=== PATIENT | female | born 1965 | race Caucasian/White ===

== ENCOUNTER 2017-09-10 20:53 | Emergency (ER) | payer MEDICAID ==
[~2017-09-10] VITALS: Ht 167.6 cm; Wt 161.0 kg
[~2017-09-10 20:53] MED LIST: AZIT250T PO; HYDR25TA4 PO
[2017-09-10] MEDS ORDERED: diphenhydrAMINE 50 mg/ml inj IV ONE (22:15)
[2017-09-10] MEDS ORDERED: ketorolac trometh. 30mg/ml inj. IV ONE (22:15)
[2017-09-10] MEDS ORDERED: metoclopramide 5 mg/ml inj IV ONE (22:15)
[2017-09-10 23:21] VITALS: BP 142/88
== END 2017-09-10 23:41 | disposition home or self-care (01) ==
LOC: ER 20:53
DX: G43.909 Migraine, unspecified, not intractable, without status migrainosus (principal); I10 Essential (primary) hypertension; Z90.89 Acquired absence of other organs; Z79.899 Other long term (current) drug therapy
CPT/HCPCS: 96374; 96375; 99284; J1200; J1885; J2765

== ENCOUNTER 2021-08-28 14:41 | Emergency (ER) | payer BC, MEDICAID, OTHER ==
[~2021-08-28] VITALS: Ht 165.1 cm; Wt 180.4 kg
[2021-08-28 15:54] LABS: BASOPHILS % (AUTO) 1.1 % (0-1); EOSINOPHILS % (AUTO) 2.7 % (0-6); HEMATOCRIT 45.5 % (35.0-45.0); HEMOGLOBIN 15.1 g/dl (12.0-16.0); LYMPHOCYTES # (AUTO) 1.6 X10'3 (1.1-4.8); LYMPHOCYTES % (AUTO) 10.8 % (21-51); MEAN CORPUSCULAR HEMOGLOBIN 27.4 PG (27.0-31.0); MEAN CORPUSCULAR HGB CONC 33.3 g/dL (33.0-36.5); MEAN CORPUSCULAR VOLUME 82.3 FL (78-98); MEAN PLATELET VOLUME 7.9 FL (7.4-10.4); MONOCYTES % (AUTO) 7.7 % (2-12); NEUTROPHILS # (AUTO) 11.3 X10'3 (1.8-7.7); NEUTROPHILS % (AUTO) 77.7 % (42-75); PLATELET COUNT 267 X10'3 (140-440); RED BLOOD COUNT 5.53 X10'6 (4.20-5.60); RED CELL DISTRIBUTION WIDTH 14.5 % (11.5-14.5); WHITE BLOOD COUNT 14.6 X10'3 (4.5-11.0)
[2021-08-28 15:55] LABS: BASOPHILS # (AUTO) 0.2 X10'3 (0-0.2); EOSINOPHILS # (AUTO) 0.4 X10'3 (0-0.9); MONOCYTES # (AUTO) 1.1 X10'3 (0-0.9)
[2021-08-28 15:56] LABS: URINE HCG NEGATIVE (NEG)
[2021-08-28 15:57] LABS: CLARITY,URINE SLIGHTLY CLOUDY (Clear); COLOR,URINE YELLOW (Yellow); GLUCOSE, URINE NEGATIVE (Neg); KETONES,URINE TRACE mg/dl (Neg); LEUKOCYTE ESTERASE ,URINE NEGATIVE (Neg); NITRITES, URINE NEGATIVE (Neg); OCCULT BLOOD,URINE MODERATE (Neg); PROTEIN,URINE 30 mg/dl (Neg)
[2021-08-28 15:58] LABS: UA COLLECTION TYPE CLN CATCH MIDSTREAM
[2021-08-28 16:04] LABS: BACTERIA,URINE 1+ /HPF (Neg); MUCUS STRANDS FEW /LPF (Neg); SQUAMOUS EPITHELIAL CELL,UR MANY /LPF (FEW)
[2021-08-28 16:07] LABS: ALANINE AMINOTRANSFERASE 24 U/L (12-78); ALBUMIN 3.2 G/DL (3.4-5.0); ALBUMIN/GLOBULIN RATIO 0.8 (1.1-1.5); ALKALINE PHOSPHATASE 93 IU/L (46-116); ANION GAP 7 (8-16); ASPARTATE AMINO TRANSFERASE 28 U/L (10-37); BILIRUBIN,TOTAL 0.5 MG/DL (0.1-1.0); BLOOD UREA NITROGEN 13 MG/DL (7-18); BUN/CREATININE RATIO 13.5 (6.6-38.0); CALCIUM 8.4 MG/DL (8.5-10.1); CHLORIDE 104 MMOL/L (99-107); CREATININE 0.96 MG/DL (0.40-0.90); GLUCOSE 126 MG/DL (70-104); LIPASE 53 U/L (73-393); POTASSIUM 3.7 MMOL/L (3.5-5.1); SODIUM 137 MMOL/L (135-145); TOTAL CARBON DIOXIDE 26.5 MMOL/L (24-32); TOTAL PROTEIN 7.1 G/DL (6.4-8.2); eGFR 60 ML/MIN
--- NOTE | 2021-08-28 19:00 | NUR ---
PT ROOMED IN BED 11. ASSUMED CARE OF PT.
[2021-08-28] MEDS ORDERED: ondansetron 4mg rapidly disintigrating tab PO ONE (20:00)
[2021-08-28] MEDS ORDERED: CEPH250T PO (21:52)
[2021-08-28 22:09] VITALS: BP 128/74
== END 2021-08-28 22:11 | disposition home or self-care (01) ==
LOC: ER 14:41
DX: R10.9 Unspecified abdominal pain (principal); I10 Essential (primary) hypertension; G43.909 Migraine, unspecified, not intractable, without status migrainosus; Z88.1 Allergy status to other antibiotic agents; Z79.899 Other long term (current) drug therapy
CPT/HCPCS: 36415; 74176; 80053; 81001; 81025; 83690; 85025; 87502; 87503; 99284

== ENCOUNTER 2021-11-20 08:01 | Emergency (ER) | payer BC | END 2021-11-20 13:02 | disposition left against medical advice (07) | LOC: ER 08:01 | DX: B99.9 Unspecified infectious disease (principal); Z53.21 Procedure and treatment not carried out due to patient leaving prior to being seen by health care provider ==

== ENCOUNTER 2021-11-21 09:50 | Emergency (ER) | payer BC ==
[~2021-11-21] VITALS: Ht 167.6 cm; Wt 162.0 kg
[2021-11-21 10:25] VITALS: BP 153/92
== END 2021-11-21 11:25 | disposition home or self-care (01) ==
LOC: ER 09:52
DX: L03.115 Cellulitis of right lower limb (principal); G43.909 Migraine, unspecified, not intractable, without status migrainosus; I10 Essential (primary) hypertension; Z91.041 Radiographic dye allergy status; Z98.890 Other specified postprocedural states
CPT/HCPCS: 99282; A6258; A6449